=== PATIENT | female | born 1960 | race Caucasian/White ===

== ENCOUNTER 2020-11-04 14:39 | Outpatient (CLI) | payer OTHER, SELFPAY ==
--- NOTE | ~2020-11-04 | MM_ITS ---
EXAMINATION: MM screening jennifer BI w junito HISTORY: Screening TECHNIQUE: Craniocaudal and mediolateral oblique 3-D tomosynthesis images were obtained and synthetic 2-D images were generated. CAD analysis was submitted and interpreted. COMPARISON: Comparison to multiple prior studies sequentially, with oldest reviewed study dated 12/2011. BREAST PARENCHYMAL COMPOSITION: Breast composed of scattered areas of fibroglandular density FINDINGS: Benign-appearing bilateral breast masses are stable or diminished in size compared with elvis or studies. There is no evidence of suspicious mass, calcification, or architectural distortion to wang ggest malignancy in either breast. There has been no suspicious interval change. IMPRESSION: 1. No mammographic evidence of malignancy. 2. Recommend routine screening mammography in one year. BI-RADS Category 2: Benign finding(s). Reviewed, dictated and finalized at location A.
== END 2020-11-04 14:40 | disposition home or self-care (01) ==
PROVIDERS: PCP Family Medicine; Visit Provider Nurse Practitioner Family
DX: Z12.31 Encounter for screening mammogram for malignant neoplasm of breast (principal)
CPT/HCPCS: 77063; 77067

== ENCOUNTER 2021-06-14 00:31 | Day surgery (SDC) | payer OTHER, SELFPAY ==
[2021-06-05 14:22] VITALS: BMI 39.9
--- NOTE | 2021-06-13 17:24 | PM.HPGS ---
History of Present Illness History of Present Illness Consent: Risks, benefits, and alternatives have been discussed and questions answered. Patient agrees to proceed with procedure. Chief complaint: neoplasm screening Narrative: Sara Tony is a 60 year old female referred for colon cancer screening. She has a family history of colon cancer Review of Systems Review of Systems: All systems reviewed & are unremarkable except as noted in HPI and below PMFSH Past Medical History Medical History Cough IFG (impaired fasting glucose) Obesity Surgical History Surgical History H/O colonoscopy History of tubal ligation Family History Family History Father Carcinoma of colon Social History Social History Smoking status: Never smoker Alcohol intake: never Substance use: never Living arrangements: with family Gender identity (if verbalized by the patient): Female Spiritual care concerns: No Meds Home Medications and Allergies Home Medications Medication Instructions Recorded Confirmed Type torsemide 10 mg tablet 10 mg PO QAM #90 tablet 07/25/20 06/05/21 Rx escitalopram oxalate 20 mg tablet 20 mg PO DAILY #90 tablet 03/28/21 06/05/21 Rx alprazolam 0.5 mg tablet 0.5 mg PO DAILY PRN #30 tablet 05/17/21 06/05/21 Rx pantoprazole 40 mg tablet,delayed 40 mg PO QAM #90 tablet 05/17/21 06/05/21 Rx release naproxen 375 mg PO BID PRN 06/05/21 06/05/21 History Allergies Allergy/AdvReac Type Severity Reaction Status Date / Time NKDA Allergy Mild unk Uncoded 06/14/21 07:16 Exam Resp: Auscultation: clear to auscultation bilaterally Cardio: Rate: regular rate Rhythm: regular rhythm GI: GI Palp: Yes Soft to palpation and No Tenderness to palpation present (GI) Assessment and Plan Assessment and plan (1) Colon cancer screening: Code(s): Z12.11 - Encounter for screening for malignant neoplasm of colon Status: Acute Assessment and Plan: Colonoscopy with possible biopsy or polypectomy or cautery or injection of substances.
[2021-06-14 07:41] VITALS: BP 132/85; PULSE 65; RESP 18; TEMP 36.3; O2SAT 98
[2021-06-14] MEDS: LACTATED RINGERS 1,000 ML 150 ML IV CONT (07:44)
--- NOTE | 2021-06-14 07:45 | WPDANESEPPF ---
Anes - Initial Pre Proc Eval Procedure: Operation Date: 06/14/21 08:30 Proposed Procedures p Screening Colonoscopy - Greg Cox MD Date/Time: 06/14/21 07:45 Surgeon: Greg Cox MD Pre Op Diagnosis: neoplasm screening Patient Data Age: 60 Gender: F Height: 1.57 m Weight: 98.5 kg Last Vital Signs Temp 36.3 C L 06/14/21 07:41 Pulse 65 06/14/21 07:41 Resp 18 06/14/21 07:41 BP 132/85 06/14/21 07:41 Pulse Ox 98 06/14/21 07:41 Allergies Allergy/AdvReac Type Severity Reaction Status Date / Time NKDA Allergy Mild unk Uncoded 06/14/21 07:16 Home Medications Medication Instructions Recorded Confirmed Type torsemide 10 mg tablet 10 mg PO QAM #90 tablet 07/25/20 06/05/21 Rx escitalopram oxalate 20 mg tablet 20 mg PO DAILY #90 tablet 03/28/21 06/05/21 Rx alprazolam 0.5 mg tablet 0.5 mg PO DAILY PRN #30 tablet 05/17/21 06/05/21 Rx pantoprazole 40 mg tablet,delayed 40 mg PO QAM #90 tablet 05/17/21 06/05/21 Rx release naproxen 375 mg PO BID PRN 06/05/21 06/05/21 History Patient hx anesthesia problems: none Family hx anesthesia problems: none Results Review: All pre-operative results and documents have been reviewed as part of the pre-operative evaluation. [facility] Past Medical History Medical History (Updated 06/14/21 @ 07:45 by Gabe Tejeda MD) Cough IFG (impaired fasting glucose) Obesity Surgical History Surgical History (Updated 06/14/21 @ 07:45 by Gabe Tejeda MD) H/O colonoscopy History of tubal ligation Family History Family History Father Carcinoma of colon Social History Social History Smoking status: Never smoker Alcohol intake: never Substance use: never Living arrangements: with family Gender identity (if verbalized by the patient): Female Spiritual care concerns: No Anes - Eval Final PreProcedure Day of Procedure 06/14/21 07:45 Patient weight: obese Heart: regular rate and rhythm Lungs: clear to auscultation Airway: Mallampati scale class II Neurological: alert and oriented Last oral intake: >/= 8 hours ASA classification: III Emergent: no Anesthetic plan: proceed Anesthesia type and monitoring: general GIVS and standard monitoring Results Review: All pre-operative results and documents have been reviewed as part of the pre-operative evaluation. Informed Consent: The patient's anesthetic plan and its attendant risks and benefits were discussed with the patient/family/POA. Questions were solicited and answers provided to the satisfaction of the patient/family/POA.
[2021-06-14 08:39] VITALS: BP 105/59; PULSE 67; RESP 15; O2SAT 94
[2021-06-14 08:49] VITALS: BP 130/75; PULSE 64; RESP 25; O2SAT 100
[2021-06-14 08:59] VITALS: BP 127/77; PULSE 61; RESP 17; O2SAT 100
== END 2021-06-14 09:11 | disposition home or self-care (01) ==
PROVIDERS: PCP Family Medicine; Visit Provider Internal Medicine Gastroenterology
PROC: 0DJD8ZZ Inspection of Lower Intestinal Tract, Via Natural or Artificial Opening Endoscopic (ICD-10-PCS; CPT 45378; principal; 2021-06-14 08:30)
DX: Z12.11 Encounter for screening for malignant neoplasm of colon (principal); Z80.0 Family history of malignant neoplasm of digestive organs; E66.9 Obesity, unspecified; Z68.39 Body mass index [BMI] 39.0-39.9, adult
CPT/HCPCS: 45378; J2704; J7120

== ENCOUNTER → 2022-05-04 11:00 | Outpatient (CLI) | payer OTHER, SELFPAY ==
--- NOTE | ~2022-05-04 | MM_ITS ---
EXAMINATION: MM screening jennifer BI w junito HISTORY: Screening TECHNIQUE: Craniocaudal and mediolateral oblique 3-D tomosynthesis images were obtained and synthetic 2-D images were generated. CAD analysis was submitted and interpreted. COMPARISON: Comparison to multiple prior studies sequentially, with oldest reviewed study dated 12/31. BREAST PARENCHYMAL COMPOSITION: There are scattered areas of fibroglandular density. FINDINGS: There is no evidence of suspicious mass, calcification, or architectural distortion to sugg est malignancy in either breast. There has been no suspicious interval change. IMPRESSION: 1. No mammographic evidence of malignancy. 2. Recommend routine screening mammography in one year. BI-RADS Category 1: Negative Reviewed, dictated and finalized at location A. AUTHOR
== END ==
PROVIDERS: PCP Family Medicine; Visit Provider Physician Assistant
DX: Z12.31 Encounter for screening mammogram for malignant neoplasm of breast (principal)
CPT/HCPCS: 77063; 77067

== ENCOUNTER 2022-07-02 09:33 | Outpatient (CLI) | payer OTHER, SELFPAY ==
--- NOTE | ~2022-07-02 | US_ITS ---
EXAMINATION: US venous doppler LE RT, US soft tissue LE RT DATE: 07/02/2022 10:11 INDICATION: Injury to the right lower limb with swelling and mass/lump medial to the right. TECHNIQUE: Grayscale ultrasound images without and with compression and Doppler ultrasound images of the right lower extremity veins were obtained. Grayscale and color Doppler imaging was also obtained of the palpable abnormality of concern at the medial right knee. COMPARISON: None. FINDINGS: The visualized portions of right common femoral vein, profunda (deep) femoral vein, femoral vein, pop liteal vein, peroneal trunk, posterior tibial veins, peroneal veins, gastrocnemius vein and greater s aphenous vein outflow are patent. At the region of concern is a multiloculated anechoic cystic lesion without evident internal flow or surrounding hyperemia on color Doppler. The cystic lesion extending with its throughout the subcutaneous fat over a larger region and can be contained within the single image. The largest discrete component to the lesion measures 3.3 x 2.3 cm. Would estimate the lesion extends over a distance of up to 7 cm. IMPRESSION: 1. No deep venous thrombosis in the right lower limb. 2. Multiloculated cystic lesion extending throughout the subcutaneous fat at the region of concern wh ich could represent either a ganglion cyst arising from the knee joint or a posttraumatic hematoma/se raffi. Reviewed, dictated and finalized at location A. IMPRESSION: 1. No deep venous thrombosis in the right lower limb. 2. Multiloculated cystic lesion extending throughout the subcutaneous fat at th e region of concern which could represent either a ganglion cyst arising from t he knee joint or a posttraumatic hematoma/seroma.
== END 2022-07-02 09:34 | disposition home or self-care (01) ==
PROVIDERS: PCP Family Medicine; Visit Provider Physician Assistant
DX: I89.0 Lymphedema, not elsewhere classified (principal); M79.89 Other specified soft tissue disorders; S89.91XA Unspecified injury of right lower leg, initial encounter; X58.XXXA Exposure to other specified factors, initial encounter
CPT/HCPCS: 76882; 93971

== ENCOUNTER → 2022-10-08 09:51 | Outpatient (CLI) | payer OTHER, SELFPAY ==
--- NOTE | ~2022-10-08 | US_ITS ---
US breast RT limited DATE: 10/08/2022 10:11 INDICATION: Right breast injury on curb, with residual tenderness at 9:00 TECHNIQUE: Real-time imaging limited to 9:00 area of pain/previous bruising COMPARISON: May 04, 2022 bilateral screening mammogram FINDINGS: No suspicious mass or shadowing, cyst or other significant sonographic abnormality is noted . IMPRESSION: BI-RADS Category 1: Negative Recommend aeration: Routine annual mammographic screening Reviewed, dictated and finalized at Location A. Reviewed, dictated and finalized at location A.
== END ==
PROVIDERS: PCP Physician Assistant; Visit Provider Physician Assistant
DX: N64.4 Mastodynia (principal)
CPT/HCPCS: 76642

== ENCOUNTER 2023-04-30 08:21 | Outpatient (CLI) | payer OTHER, SELFPAY ==
--- NOTE | ~2023-04-30 | XR_ITS ---
XR chest 2V DATE: 04/30/2023 08:50 INDICATION: Rectal bleeding cough. Shortness of breath. Exhaustion TECHNIQUE: PA and lateral views COMPARISON: 04/11/2010 2 view chest FINDINGS: Normal heart size. No hilar or mediastinal enlargement. No pulmonary infiltrate or consolid ation, pleural effusion or pulmonary vascular congestion or pneumothorax is detected. IMPRESSION: No active cardiopulmonary disease Reviewed, dictated and finalized at location L. S ACCOUNT EXECUTIVE
[2023-04-30 09:21] LABS: Influenza A QL RT-PCR Positive (Negative); Influenza B QL RT-PCR Negative (Negative); RSV RNA, RT-PCR Negative (Negative); SARS-CoV-2 RNA PCR Negative (Negative)
== END 2023-04-30 08:22 | disposition home or self-care (01) ==
LOC: ANHLAB 08:22
PROVIDERS: PCP Physician Assistant; Visit Provider Physician Assistant
DX: R05.9 Cough, unspecified (principal); R06.2 Wheezing; Z20.822 Contact with and (suspected) exposure to COVID-19
CPT/HCPCS: 71046; 87637

== ENCOUNTER 2024-01-17 13:39 | Outpatient (CLI) | payer OTHER, SELFPAY ==
--- NOTE | ~2024-01-17 | MM_ITS ---
EXAMINATION: MM screening jennifer BI w junito HISTORY: Screening TECHNIQUE: Craniocaudal and mediolateral oblique 3-D tomosynthesis images were obtained and synthetic 2-D images were generated. CAD analysis was submitted and interpreted. COMPARISON: Comparison to multiple prior studies sequentially, with oldest reviewed study dated 12/31. BREAST PARENCHYMAL COMPOSITION: Not dense: There are scattered areas of fibroglandular density. FINDINGS: Bilateral breast asymmetries and right breast masses are stable compared with prior examina tions. There is no evidence of suspicious mass, calcification, or architectural distortion to suggest malignancy in either breast. There has been no suspicious interval change. IMPRESSION: 1. No mammographic evidence of malignancy. 2. Recommend routine screening mammography in one year. BI-RADS Category 2: Benign finding(s). Reviewed, dictated and finalized at location B.
== END 2024-01-17 13:40 | disposition home or self-care (01) ==
PROVIDERS: PCP Physician Assistant; Visit Provider Physician Assistant
DX: Z12.31 Encounter for screening mammogram for malignant neoplasm of breast (principal)
CPT/HCPCS: 77063; 77067

== ENCOUNTER 2024-01-31 09:59 | Outpatient (CLI) | payer OTHER, SELFPAY ==
--- NOTE | ~2024-01-31 | US_ITS ---
US pelvic complete w TV Ordering provider: Mikhail Peña MD History: . N95.0 - Postmenopausal bleeding . Comparison: None. Technique: Transabdominal and endovaginal ultrasound of the pelvis (Doppler ultrasound interrogation techniques used as needed for this exam.) FINDINGS: CERVIX: Normal. UTERUS: Measures 6.5x 3.3x 4.1 cm in length which is within normal limits and is anteverted. No myom etrial masses. ENDOMETRIUM: Normal in thickness measuring 4 mm. (Note: the premenopausal endometrium may measure up to 16 mm when in the secretory phase.) No endometrial masses, cysts or fluid. CUL DE SAC: No free fluid. RIGHT OVARY: Normal in size measuring 2.6x 1.5x 2 centimeters. Normal echotexture. Doppler vascular f low present. Hypoechoic Mass is seen in the right adnexa which is most likely originating from the ri ght ovary and measures 1.9 x 1.4 x 1.6 cm. LEFT OVARY: Normal in size measuring 1.9x 0.9x 1.4 cm. Normal echotexture. Doppler vascular flow pres ent. IMPRESSION: Right adnexal mass most likely ovarian. Further evaluation advised Otherwise, normal pelvic ultrasoun d. Reviewed, dictated and finalized at location A. IMPRESSION: Right adnexal mass most likely ovarian. Further evaluation advised Otherwise, n ormal pelvic ultrasound.
== END 2024-01-31 10:00 | disposition home or self-care (01) ==
PROVIDERS: PCP Physician Assistant; Visit Provider Student in an Organized Health Care Education/Training Program
DX: N95.0 Postmenopausal bleeding (principal)
CPT/HCPCS: 76830; 76856

== ENCOUNTER 2024-05-15 08:24 | Outpatient (CLI) | payer OTHER, SELFPAY ==
--- NOTE | ~2024-05-15 | US_ITS ---
EXAMINATION: US pelvic complete w TV DATE: 05/15/2024 08:55 INDICATION: Right adnexal mass. TECHNIQUE: Multiple transabdominal and transvaginal sonographic images of the pelvis were obtained. COMPARISON: Ultrasound 01/31/2024 FINDINGS: TRANSABDOMINAL ULTRASOUND: The uterus measures 6.6 x 3.3 x 4.6 cm. There is no free fluid in the pelvis. TRANSVAGINAL ULTRASOUND: The endometrial complex measures 4 mm in thickness. The right ovary measures 3.4 x 2.4 x 2.3 cm. Ther e is a 2.1 cm hemorrhagic cyst in right ovary. There is normal vascular flow in right ovary. The left ovary is not visualized. IMPRESSION: 1. Small hemorrhagic cyst in right ovary with decrease in size. Reviewed, dictated and finalized at location A. RVISOR PAPER MACHINE
== END 2024-05-15 08:25 | disposition home or self-care (01) ==
LOC: MICIMG 08:27
PROVIDERS: PCP Physician Assistant; Visit Provider Student in an Organized Health Care Education/Training Program
DX: N94.89 Other specified conditions associated with female genital organs and menstrual cycle (principal); N83.201 Unspecified ovarian cyst, right side
CPT/HCPCS: 76830; 76856

== ENCOUNTER 2025-02-04 14:09 | Outpatient (CLI) | payer OTHER, SELFPAY ==
--- OUTSIDE RECORDS SUMMARY | 2001-09-05 02:00 | XMS_ITS | Continuity of Care Document ---
Author Organization [facility] Address [address] [place] [address] Phone Care Team Providers Care Case Work Aide Name Role Phone Petr Alejandro Unavailable Unavailable Advance Directives Directive Yes / No Effective Date File Name No Information Encounters Encounter Description Practice Location Reason(s) For Visit Diagnoses Date Provider Providers Copied on Encounter [facility], [id number] [place] [address] [address], [place], [place], [id number], [place] tel:[phone] [facility] [place] No Information [id number] [facility] [place] , [address], [place], [address], [place]. tel:[phone] Family History Family Member Type Diagnosis Age At Onset No Information Payers Payer name Insurance type Covered republican ID Authoriza tion(s) No Information Social History Type Description Quantity Date Captured Comments Sex Female Smoking Status No Information Chief Complaint And Reason For Visit No Information Reason For Referral Reason For Referral No Information History Of Present Illness Encounter Date Complaint History Of Prese nt Illness No Information Functional Status Date Functional Assessmen t No Information Instructions Date Instruction Additional Infor mation No Information Assessments Type Assessment Date No Information Patient Care Teams Name Effective Dates (start - stop) Status Members No Information
--- NOTE | ~2025-02-04 | MM_ITS ---
EXAMINATION: MM screening jennifer BI w junito HISTORY: Screening TECHNIQUE: Craniocaudal and mediolateral oblique 3-D tomosynthesis images were obtained and synthetic 2-D images were generated. CAD analysis was submitted and interpreted. COMPARISON: Comparison to multiple prior studies sequentially, with oldest reviewed study dated 04/15/2015. BREAST PARENCHYMAL COMPOSITION: Not dense: There are scattered areas of fibroglandular density. FINDINGS: There is focal asymmetry laterally in the right breast on CC view, not definitely visualized on prior examination. Possible architectural distortion. The left breast is stable without evidence for malignancy. IMPRESSION: 1. Focal right breast asymmetry laterally on CC view, middle third. 2. Additional mammographic views and possible breast ultrasound are recommended. BI-RADS Category 0: Incomplete: Needs additional imaging evaluation. Reviewed, dictated and finalized at location O. CAST TECHNICIAN IMPRESSION: 1. Focal right breast asymmetry laterally on CC view, middle third. 2. Additional mammographic views and possible breast ultrasound are recommended . BI-RADS Category 0: Incomplete: Needs additional imaging evaluation.
--- OUTSIDE RECORDS SUMMARY | 2025-02-04 20:27 | XMS_ITS | Clinical Summary ---
Author Organization [facility] Address [address] [place] [address] Care Team Providers Care Lace Finisher Name Role Phone Carlos Bansal MD Primary Care Provider [phone] Carlos Bansal MD Unavailable [phone] [facility],non-owned Affiliates and Associated Physician Practices is amultiple site organization consisting of ambulatory clinics and hospital sitesin [place], [place], [place] and [place]. This disclosure is being madepursuant to the Care Everywhere program and may not contain all information available regarding this patient. Last updated 17.[facility] Allergies No known active allergies Medications * Be aware that medications may not be up to date on this document. Alwaysverify current medications with the patient. TORSEMIDE PO Active predniSONE (DELTASONE) 20 MG tabletIndication s:Allergic contact dermatitis due to plants, except food 60 mg po for 5 days, 40 mg po for 5 days, 20 mg po for 5 days. 30 Tab 10/12/2016 Active albuterol HFA (PROVENTIL;HUMPHREY FAY;PROAIR) 108 (90 BASE) MCG/ACT inhalerIndicatio ns:Acute bronchitis, unspecified organism Inhale 2 puffs by mouth every 4 hours as needed 1 Inhaler 04/09/2017 Active Immunizations Immunization Administration Dates Next Due FLU VACCINE QUAD IIV4 PF ID 02/18/2016 INFLUENZA VACCINE, QUADR. (F LUZONE; FLULAVAL; FLUARIX; AFLURIA QUADRIVALENT; 6MO+), 0.5 ML (IIV4) 02/14/2020,02/02/2017 iNFLUENZA VACCINE, RECOM-MCINTYRE, QUADR. 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 Gender Identity Not on file Sexual Orientation Not on file Last Filed Vital Signs Vital Sign Reading Time Taken Comments Blood Pressure 122/80 04/09/2017 6:18 PM MUSIC PUBLISHER Pulse 83 04/09/2017 6:18 PM MUSIC PUBLISHER Temperature 36.8 C (98.3 F) 04/09/2017 6:18 PM MUSIC PUBLISHER Respiratory Rate 16 10/12/2016 3:08 PM CDT Oxygen Saturation 97% 04/09/2017 6:18 PM MUSIC PUBLISHER Inhaled Oxygen Concentration - - Weight 95.3 kg (210 lb) 04/09/2017 6:18 PM MUSIC PUBLISHER Height 157.5 cm (5' 2) 04/09/2017 6:18 PM MUSIC PUBLISHER Body Mass Index 38.41 04/09/2017 6:18 PM MUSIC PUBLISHER Plan of Treatment Health Maintenance Due Date Last Done Comments COLOGUARD (AGES 45-75) - COLON CA SCREENING 1962 COLON MONITORING 1962 COLONOSCOPY - COLON CA SCREENING 1962 CT COLONOGRAPHY - COLON CA SCREENING 1962 Colorectal Cancer Screening 1962 FIT - COLON CA SCREENING 1962 FLEX SIG - COLON CA SCREENING 1962 LIPID TESTING 1962 MAMMOGRAM 1962 HIV SCREENING 1977 HEPATITIS C SCREENING 09/01/1980 DTAP/TDAP/TD VACCINES (1 - Tdap) 1981 PNEUMOCOCCAL VACCINE 50+ (1 of 1 - PCV) 2012 ZOSTER VACCINE (1 of 2) 2012 DEPRESSION SCREENING 04/01/2024 COVID-19 VACCINE (1 - season) 2024 INFLUENZA VACCINE (#1) 2024 0, 02/08/2018, 02/02/2017, Additional history exists Respiratory Syncytial Virus (RSV) Vaccine Pt: or over 60 yrs (1 - 1-dose 75+ series) 2037 HEPATITIS B VACCINE Aged Out No longe r eligible based on patient's age to complete this topic HIB VACCINE Aged Out No longer eligi ble based on patient's age to complete this topic HPV VACCINE Aged Out No longer eligi ble based on patient's age to complete this topic MENINGOCOCCAL (Group B) VACCINE SHARED DECISION-MAKING Aged Out No longer eligible based on patient's age to complete this topic MENINGOCOCCAL GROUPS A/C/Y/W VACCINE Aged Out No longer eligible based on patient's age to complete this topic Insurance [facility] Care Teams Lace Finisher Relationship Specialty Start Date End Date Carlos Bansal MD [address] [place] [address] PCP - General Family Medicine 10/12/16 Carlos Bansal MD [address] [place] [address] Family Medicine 10/12/16
--- OUTSIDE RECORDS SUMMARY | 2025-02-04 20:27 | XMS_ITS | Clinical Summary ---
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 Gender Identity Not on file Sexual Orientation Not on file Plan of Treatment Health Maintenance Due Date Last Done Comments Hepatitis C Virus (HCV) Screening 1962 TdaP Immunization 1962 Pap Smear 09/07/1983 Cervical Cancer Screening (CCS) 1992 HPV/Cotest 1992 Cologuard 09/07/2007 Colonoscopy 09/07/2007 Colorectal Cancer Screening 09/07/2007 Immunochemical Fecal Occult Blood 09/07/2007 Pneumococcal Immunization (50+ years) (1 of 1 - PCV) 2012 Zoster Immunization (1 of 2) 2012 Influenza Immunization (#1) 11/30/202401/30, 02/17/2019, 02/08/2018, Additional history exists SARS-COV-2 Immunization ( season) 2024 04/20/2021, 09/12/2020, 08/22/2020 Respiratory Syncytial Virus (RSV) Immunization (Adult) (1 - 1-dose 75+ series) 2037 Hepatitis B Immunization Aged Out No longer eligible based on patient's age to complete this topic Human Papillomavirus (HPV) Immunization Aged Out No longer eligible based on patient's age to complete this topic Meningococcal Immunization (ACWY) Aged Out No longer eligible based on patient's age to complete this topic Rotavirus Immunization Aged Out No lo nger eligible based on patient's age to complete this topic
== END 2025-02-04 14:10 | disposition home or self-care (01) ==
LOC: ANHFOHIMG 14:11
PROVIDERS: PCP Family Medicine; Visit Provider Obstetrics & Gynecology
DX: Z12.31 Encounter for screening mammogram for malignant neoplasm of breast (principal); R92.8 Other abnormal and inconclusive findings on diagnostic imaging of breast
CPT/HCPCS: 77063; 77067

== ENCOUNTER 2025-02-17 14:41 | Outpatient (CLI) | payer OTHER, SELFPAY ==
--- NOTE | ~2025-02-17 | US_ITS ---
EXAM/PROCEDURE: US renal BI HISTORY: R82.90 - Unspecified abnormal findings in urine COMPARISON: None available. TECHNIQUE: Renal ultrasound performed FINDINGS: Right kidney: 9.6 x 4.5 x 5.7 cm Left kidney: 10.5 x 5.3 x 4.6 cm Echotexture of both kidneys appears normal to slightly increased. No hydronephrosis, perinephric fluid collections or suspicious renal masses identified. In the inferomedial left kidney there is a 1.2 x 1.1 x 1.0 cm probably simple cyst. Limited imaging of the urinary bladder with no obvious abnormality in the urinary bladder. IMPRESSION: Slight increased echotexture of the kidneys could represent underlying medical renal disease. No hydronephrosis or suspicious masses. 1.2 cm left renal cyst. Reviewed, dictated and finalized at location A. LATION CUTTER AND FORMER
== END 2025-02-17 14:42 | disposition home or self-care (01) ==
LOC: MICIMG 14:42
PROVIDERS: PCP Obstetrics & Gynecology; Visit Provider Physician Assistant
DX: R82.90 Unspecified abnormal findings in urine (principal); R10.A1 Flank pain, right side; R82.998 Other abnormal findings in urine; R31.9 Hematuria, unspecified
CPT/HCPCS: 76770

== ENCOUNTER 2025-03-23 10:24 | Outpatient (CLI) | payer OTHER, SELFPAY ==
--- NOTE | ~2025-03-23 | MM_ITS ---
EXAMINATION: MM diagnostic jennifer RT w junito HISTORY: Additional imaging TECHNIQUE: Craniocaudal and mediolateral oblique 3-D tomosynthesis images were obtained and synthetic 2-D images were generated. CAD analysis was submitted and interpreted. COMPARISON: February 04. Older prior studies dating back to 2022. BREAST PARENCHYMAL COMPOSITION: Dense: The breasts are heterogeneously dense FINDINGS: The finding(s) questioned on the screening study does/dew not persist with additional imaging. This/these is/are thought to have related to compression artifact(s). Asymmetries seen elsewhere are unchanged from multiple prior studies. No new or suspicious masses are seen. There are no suspicious calcifications. No unexplained architectural distortion is seen. There are no skin or nipple abnormalities identified. There is no adenopathy seen on the images submitted. IMPRESSION: No mammographic evidence to suggest malignancy is seen. The patient may return to screening mammography as per ACR guidelines. BI-RADS 1 - Negative. Reviewed, dictated and finalized at location A. CAL MANAGER
--- OUTSIDE RECORDS SUMMARY | 2025-03-23 11:03 | XMS_ITS | Clinical Summary ---
Author Organization [facility] Address [address] [place] [phone] Care Team Providers Care Chief Accountant Name Role Phone Unavailable Primary Care Provider Unavailabl e Immunizations Immunization Administration Dates Next Due Covid-19, Mrna, Lnp-s, Pf, 30 Mcg/0.3 Ml Dose (P fizer) 04/20/2021 Social History Tobacco Use Types Packs/Day Years Used Date Smoking Tobacco: Never Assessed Comments Unknown Sex and Gender Information Value Date Recorded Sex Assigned at Not on file Legal Sex Female 3:24 PM LCPC Gender Identity Not on file Sexual Orientation [...]
--- OUTSIDE RECORDS SUMMARY | 2025-03-23 11:03 | XMS_ITS | Clinical Summary ---
Author Organization [facility] Address [address] [place] [address] Care Team Providers Care Real Estate Sales Supervisor Name Role Phone Carlos Bansal MD Primary Care Provider [phone] Carlos Bansal MD Unavailable [phone] Source Comments [facility],non-owned Affiliates and Associated Physician Practices is amultiple site organization consisting of ambulatory clinics and hospital sitesin [place], [place], [place] and [place]. This disclosure is being madepursuant to the Care Everywhere program and may not contain all information available regarding this patient. 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 BOND WRITER Gender Identity Not on file Sexual Orientation Not on file Last Filed Vital Signs Vital Sign Reading Time Taken Comments Blood Pressure 122/80 04/09/2017 6:18 PM BOND WRITER Pulse 83 04/09/2017 6:18 PM BOND WRITER Temperature 36.8 C (98.3 F) 04/09/2017 6:18 PM BOND WRITER Respiratory Rate 16 10/12/2016 3:08 PM CDT Oxygen Saturation 97% 04/09/2017 6:18 PM BOND WRITER Inhaled Oxygen Concentration - - Weight 95.3 kg (210 lb) 04/09/2017 6:18 PM BOND WRITER Height 157.5 cm (5' 2) 04/09/2017 6:18 PM BOND WRITER Body Mass Index 38.41 04/09/2017 6:18 PM BOND WRITER Plan of Treatment Health Maintenance Due Date [...] DEPRESSION SCREENING 04/01/2024 COVID-19 VACCINE (1 - 2024- season) 2024 INFLUENZA VACCINE (#1) 2024 0, [...] patient's age to complete this topic Insurance [facility] Care Teams Real Estate Sales Supervisor Relationship Specialty Start Date End Date Carlos Bansal MD [address] [place] [address] PCP - General Family Medicine 10/12/16 Carlos Bansal MD [address] [place] [address] Family Medicine 10/12/16
== END 2025-03-23 10:25 | disposition home or self-care (01) ==
LOC: ANHFOHIMG 10:25
PROVIDERS: PCP Obstetrics & Gynecology; Visit Provider Obstetrics & Gynecology
DX: N64.89 Other specified disorders of breast (principal)
CPT/HCPCS: 77061; 77065; G0279